=== PATIENT | female | born 1955 | race Caucasian/White ===

== ENCOUNTER → 2017-02-21 | Outpatient (CLI) | payer OTHER | LOC: ULTRA 07:30 | DX: E04.2 Nontoxic multinodular goiter (principal) ==

== ENCOUNTER → 2017-04-30 | Outpatient (CLI) | payer OTHER ==
--- NOTE | ~2017-04-30 | S ---
[facility] [place] [address] SURGICAL PATH RPT PROCEDURE Name: ANABEL TEJADA Room #: REG [facility].#: [id number] Admission: 04/30/17 Date of : 53 Discharge: Report #: [id number] Path Case #: [id number] PATHOLOGY REPORT COLLECTION DATE: 04/30/2017 RECEIVED DATE: 04/30/2017 SUBMITTING PHYS: Dr. Oseas Vincent OTHER PHYS: Dr. 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 (See comment.) COMMENT: Sections show fragments of thyroid tissue with a mixed macrofollicular and microfollicular pattern and abundant colloid. Fragments of skeletal muscle are also present. The findings likely represent a benign adenomatous nodule. Classic cytologic features of papillary carcinoma are not identified. 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 Clinical and radiographic correlation is recommended. (CLW:vero; 05/01/2017) PATHOLOGIST: Michelle Lockett M.D. REPORT ELECTRONICALLY SIGNED BY: Michelle Lockett M.D. DATE/TIME: 05/01/2017 15:20 * * * * * * * * * * * * GROSS PATHOLOGY: Received in formalin labeled "Anabel Tejada, right thyroid" are 7 distinct needle cores of zavala soft tissue ranging from 0.1 to 0.2 cm in length, which are submitted entirely in cassette A1 through A3. (TSD; 04/30/2017) CLINICAL HISTORY: None provided INITIAL CPT CODE(S): A; 57632 Professional services performed by [facility] at [facility] [address] [place] [address] SURGICAL PATH RPT PROCEDURE Name: ANABEL TEJADA Room #: REG VINICIO Turner#: [id number] Admission: 04/30/17 Date of : 53 Discharge: Report #: [id number] Path Case #: [id number] , [place] [address] Technical services performed by [facility] at [address] [place] [address], [address], [place] [address]. [place] [address] PHONE: [phone] DIRECTOR: Lincoln Donaldson M.D. * * * END OF REPORT * * *
== END | disposition home or self-care (01) ==
LOC: ULTRA 04-23 13:06
DX: E04.1 Nontoxic single thyroid nodule (principal)

== ENCOUNTER → 2019-02-17 | Outpatient (CLI) | payer OTHER | LOC: RAD 11:44 | DX: Z12.31 Encounter for screening mammogram for malignant neoplasm of breast (principal) ==

== ENCOUNTER → 2021-03-01 | Outpatient (CLI) | payer OTHER | END | disposition home or self-care (01) | LOC: BC 08:54 | PROVIDERS: ATTEND Nurse Practitioner | DX: Z12.31 Encounter for screening mammogram for malignant neoplasm of breast (principal); E04.2 Nontoxic multinodular goiter ==

== ENCOUNTER → 2021-03-06 | Outpatient (CLI) | payer OTHER | LOC: NUC 08:16 | PROVIDERS: ATTEND Nurse Practitioner | DX: M85.88 Other specified disorders of bone density and structure, other site (principal); Z78.0 Asymptomatic menopausal state ==